=== PATIENT | male | born 2000 | race African-American/Black ===

== ENCOUNTER 2022-04-13 16:09 | Outpatient (CLI) | payer BC, SELFPAY ==
[2022-04-13 22:05] LABS: Chloride* 102 mmol/L (96-114)
[2022-04-13 22:06] LABS: Potassium* 4.4 mmol/L (3.6-5.1); Sodium* 139 mmol/L (135-149)
[2022-04-13 22:08] LABS: Creatinine* 0.9 mg/dL (0.5-1.5); Estimated Glomerular Filt Rate 125 ml/min
[2022-04-13 22:09] LABS: Blood Urea Nitrogen* 10 mg/dL (5-24); Calcium* 9.7 mg/dL (8.4-10.6); Carbon Dioxide* 30 mmol/L (20-32); Glucose* 110 mg/dL (60-115)
[2022-04-13 22:50] LABS: Vitamin B12* 474 pg/mL (243-894)
== END 2022-04-13 16:10 | disposition home or self-care (01) ==
PROVIDERS: PCP Family Medicine; Visit Provider Family Medicine
DX: Z00.00 Encounter for general adult medical examination without abnormal findings (principal); D69.6 Thrombocytopenia, unspecified; D57.3 Sickle-cell trait
CPT/HCPCS: 80048; 82607

== ENCOUNTER 2024-04-29 11:35 | Outpatient (CLI) | payer BC, SELFPAY | END 2024-04-29 11:36 | disposition home or self-care (01) | PROVIDERS: PCP Family Medicine; Visit Provider Family Medicine | DX: D57.3 Sickle-cell trait (principal); D69.6 Thrombocytopenia, unspecified; R63.4 Abnormal weight loss | CPT/HCPCS: 80053; 82248; 82306; 84443 ==

== ENCOUNTER 2024-11-14 13:30 | Outpatient (CLI) | payer BC, SELFPAY | END 2024-11-14 13:31 | disposition home or self-care (01) | PROVIDERS: PCP Family Medicine; Visit Provider Family Medicine | DX: E55.9 Vitamin D deficiency, unspecified (principal); R63.4 Abnormal weight loss; D69.6 Thrombocytopenia, unspecified; D57.3 Sickle-cell trait | CPT/HCPCS: 80076; 82306 ==

== ENCOUNTER 2024-12-01 13:45 | Outpatient (CLI) | payer BC, SELFPAY | END 2024-12-01 13:46 | disposition home or self-care (01) | LOC: US 13:47 | PROVIDERS: PCP Family Medicine; Visit Provider Family Medicine | DX: R63.4 Abnormal weight loss (principal); R79.89 Other specified abnormal findings of blood chemistry | CPT/HCPCS: 76705 ==